=== PATIENT | male | born 1965 | race Caucasian/White ===

== ENCOUNTER 2023-02-03 14:00 | Inpatient (IN) | payer BC ==
[~2023-02-03] VITALS: Ht 177.8 cm; Wt 124.7 kg
[2023-02-03] MEDS ORDERED: ATORVASTATIN CA10 MG PO (14:14)
[2023-02-03] MEDS ORDERED: ZESTRIL10 M1 PO (14:15)
[2023-02-03] MEDS ORDERED: KAPSPARGO SPRI100 MG PO (14:15)
[2023-02-03] MEDS ORDERED: VAZALORE81 MG PO (14:15)
== END 2023-02-04 01:00 | disposition left against medical advice (07) | DRG 390 ==
LOC: ER 14:00 → SURH 20:59
PROVIDERS: ADMIT Internal Medicine; ATTEND Internal Medicine
PROC: BW21ZZZ Computerized Tomography (CT Scan) of Abdomen and Pelvis (ICD-10-PCS; principal; 2023-02-03)
DX: K56.699 Other intestinal obstruction unspecified as to partial versus complete obstruction (principal); K42.9 Umbilical hernia without obstruction or gangrene; Z20.822 Contact with and (suspected) exposure to COVID-19